=== PATIENT | female | born 1945 | race Caucasian/White ===

== ENCOUNTER 2018-04-10 18:49 | Emergency (ER) | payer OTHER ==
--- NOTE | 2018-04-10 20:08 | EDPHY ---
H & P Time Seen by Provider: 04/10/18 20:08 HPI/ROS: CHIEF COMPLAINT: Right elbow pain HISTORY OF PRESENT ILLNESS: Lost her balance and fell while hiking up at [facility]. Landed on her right side was carried out by the rescue team. The complains primarily of right elbow pain which started after the fall, is moderate to severe, worse with movement or palpation, radiates toward the hand. Not associated with weakness or numbness in the hand. Also has lower lip injury and right knee injury. Was unable to walk at that time. Did not lose consciousness. REVIEW OF SYSTEMS: Eye: no change in vision ENT: no sore throat Cardiac: no chest pain or syncope Pulmonary: no cough or SOB Abdomen: No abdominal pain Musculoskeletal: Chronic back and neck pain but nothing new Skin: Lip laceration and right knee abrasion Neuro: no headache Constitutional: no fever : no urinary symptoms A comprehensive 10 point review of systems is otherwise negative aside from elements mentioned in the history of present illness. PAST MEDICAL HISTORY: Includes atrial fib on Pradaxa, hyperlipidemia, hypertension, anxiety, brain tumor Social history: Nonsmoker General Appearance: Alert and conversant, cooperative. Eyes: No scleral icterus. Pupils equal reactive extraocular motion intact. ENT, Mouth: Normal mucous membranes. She has a 5 mm lower lip mucosal laceration. Respiratory: Normal respiratory effort, breath sounds equal, lungs are clear to auscultation. Cardiovascular: Regular rate and rhythm. Gastrointestinal: Abdomen is soft and non tender. Neurological: Alert, face symmetric, normal motor and sensory in extremities. Skin: Abrasion to the right knee. Musculoskeletal: Right elbow is held in flexion with swelling and tenderness at the elbow, a little bit of tenderness mid forearm, no wrist or hand tenderness. Shoulder is limited passive range of motion without pain. Does not have midline spinal tenderness. Psychiatric: Not agitated. Emergency Department course/MDM: Right elbow shows olecranon fracture. Plan for forearm x-ray, right knee x-ray , head CT with head trauma and anticoagulation. Lower lip laceration is superficial, does not cross the vermilion border, will heal well with out sutures. No dental injury, it no jaw tenderness, no malocclusion. Procedure: Splint placement. A the right long-arm posterior Ortho Glass splint was applied. After application of the splint I returned and re-examined the patient. The splint was adequately immobilizing the joint and distal to the splint the patient's circulation and sensation was intact. Patient is ambulatory in the emergency department. Cervical spine cleared clinically. Does not have evidence of intracranial bleeding. X-rays reviewed with the patient and her spouse on the computer system, explained and warned she needs orthopedic follow-up at [facility] for ORIF. She states her pain is adequately controlled and she is comfortable going home. Smoking Status: Never smoked Constitutional: Initial Vital Signs Temperature (C) 36.9 C 04/10/18 18:49 Heart Rate 66 04/10/18 18:49 Respiratory Rate 18 04/10/18 18:49 Blood Pressure 183/83 H 04/10/18 18:49 O2 Sat (%) 100 04/10/18 18:49 O2 Delivery Mode Room Air Allergies/Adverse Reactions: No Known Allergies Allergy (Unverified 04/10/18 18:55) Home Medications: Medication Instructions Recorded Atenolol 04/10/18 Losartan Potassium 04/10/18 Pradaxa 04/10/18 Prozac 20 MG (*) 04/10/18 SIMVASTATIN 04/10/18 Medical Decision Making - Diagnostics Imaging Results: Imaging Impressions Forearm X-Ray 04/10/18 20:19 Impression: No additional fracture identified. 2. Right Knee , 5 views, including a sunrise view History: Pain post trauma. Fall while hiking. Findings: No fracture, effusion or dislocation is identified. Impression: Nothing acute identified. Head CT 04/10/18 20:19 Impression: 1. No acute intracranial abnormality identified. 2. Right lateral nasal plate fracture of unknown acuity. Results called to Dr. Cale Altamirano at 9:14 PM General information for patients regarding this examination can be found at [email or web address]. If you have questions or comments about this report, please contact me at (hospital) or [phone] (cell). Knee X-Ray 04/10/18 20:19 Impression: No additional fracture identified. 2. Right Knee , 5 views, including a sunrise view History: Pain post trauma. Fall while hiking. Findings: No fracture, effusion or dislocation is identified. Impression: Nothing acute identified. Imaging: I viewed and interpreted images myself Differential Diagnosis: Differential for elbow injury considered including but not limited to elbow dislocation, olecranon fracture, radial head fracture, contusion. - Data Points Medications Given: Discontinued Medications Hydrocodone Bitart/Acetaminophen ([place] 5/325mg Prepack#6) 1 btl TAKEHOME EDNOW ONE Stop: 04/10/18 21:45 Last Admin: 04/10/18 21:51 Dose: 1 btl Hydromorphone HCl (Dilaudid) 0.5 mg IVP EDNOW ONE Stop: 04/10/18 20:23 Last Admin: 04/10/18 20:55 Dose: 0.5 mg Departure - Departure Disposition: Home, Routine, Self-Care Clinical Impression: Contusion of right knee, initial encounter Lip laceration Qualifiers: Encounter type: initial encounter Qualified Code(s): S01.511A - Laceration without foreign body of lip, initial encounter Fracture of olecranon process, right, closed Qualifiers: Encounter type: initial encounter Qualified Code(s): S52.021A - Displaced fracture of olecranon process without intraarticular extension of right ulna, initial encounter for closed fracture Condition: Good Instructions: Hydrocodone/Acetaminophen (By mouth), Elbow Fracture (ED) Additional Instructions: See the [facility] in the next 1-2 days for evaluation for surgical fixation of your right elbow. Referrals: Patient,NotPresent [Unknown] - As per Instructions [facility] ([facility],. [Edm Groups for Call Sched] - As per Instructions
[2018-04-10] MEDS ORDERED: HYDROmorphONE/DILAUDID 2 MG/ML INJ IVP ONE (20:22)
[2018-04-10] MEDS ORDERED: HYDROmorphONE/DILAUDID 1 MG/ML INJ ONE (20:25)
[2018-04-10] MEDS ORDERED: HYDROCOD/APAP 5/325 PREPACK#6 BTL TAKEHOME ONE (21:44)
[2018-04-10 21:55] VITALS: BP 158/86
== END 2018-04-10 22:02 | disposition home or self-care (01) ==
DX: S52.021A Displaced fracture of olecranon process without intraarticular extension of right ulna, initial encounter for closed fracture (principal); S01.511A Laceration without foreign body of lip, initial encounter; S80.01XA Contusion of right knee, initial encounter; I10 Essential (primary) hypertension; W18.39XA Other fall on same level, initial encounter; Y92.89 Other specified places as the place of occurrence of the external cause; Y99.8 Other external cause status; Y93.01 Activity, walking, marching and hiking
CPT/HCPCS: 70450; 73080; 73090; 73564; 96374; 99285; A4565; J1170